=== PATIENT | male | born 1965 | race Caucasian/White ===

== ENCOUNTER → 2019-06-11 07:54 | Outpatient (CLI) | payer BC, SELFPAY ==
[2019-06-11 11:32] LABS: Alanine Aminotransferase 29 U/L (12-78); Albumin Level 4.1 gm/dL (3.4-5.0); Albumin/Globulin Ratio 1.4 (1.1-1.8); Alkaline Phosphatase 65 U/L (46-116); Anion Gap 12.5 mEq/L (5-15); Aspartate Amino Transferase 20 U/L (15-37); Bilirubin,Total 0.4 mg/dL (0.2-1.0); Blood Urea Nitrogen 16 mg/dL (7-18); Calcium 8.9 mg/dL (8.5-10.1); Carbon Dioxide 29 mmol/L (21.0-32.0); Chloride 104 mmol/L (98-107); Chol/HDL Ratio 5.2 (1-3.5); Cholesterol 232 mg/dL (140-200); Creatinine,Serum 1.23 mg/dL (0.70-1.30); Estimated Glomerular Filt Rate 61 ml/min (>60); GFR (African American) 74 ML/MIN (>60); Glucose 91 mg/dL (74-106); HDL Cholesterol 45 mg/dL (27-67); LDL Cholesterol 159 mg/dL (0-130); Potassium 4.5 mmoL/L (3.5-5.1); Sodium 141 mmol/L (136-145); Thyroid Stimulating Hormone 3.33 uIU/ml (0.358-3.740); Total Protein,Serum 7.1 gm/dL (6.4-8.2); Triglycerides 142 mg/dL (30-200); VLDL Cholesterol 28 mg/dL (0-40)
== END ==
PROVIDERS: Visit Provider Family Medicine
DX: E78.5 Hyperlipidemia, unspecified (principal); F41.9 Anxiety disorder, unspecified
CPT/HCPCS: 36415; 80053; 80061; 84443

== ENCOUNTER → 2020-07-21 12:40 | Outpatient (CLI) | payer OTHER, SELFPAY ==
--- NOTE | 2020-07-21 | XR_ITS ---
PROCEDURE: XR CHEST 2V CLINICAL HISTORY: SOA Chest pain, shortness of air COMPARISON: CR CXR CHEST(2 VIEWS-NOT PORTABLE) from 05/27/2014 FINDINGS: The cardiomediastinal silhouette and pulmonary vascularity are within normal limits. The lungs are clear without infiltrates, suspicious nodules, or pleural effusions. There is a moderate-sized hiatal hernia. No acute bony findings. IMPRESSION: Hiatal hernia otherwise negative Dictated by: Thee Martins MD 07/22/2020 07:33 Thee Martins MD in [place] 07/22/2020 07:33
== END ==
PROVIDERS: PCP Family Medicine; Referring Provider Family Medicine; Visit Provider Family Medicine
DX: R06.02 Shortness of breath (principal)
CPT/HCPCS: 71046

== ENCOUNTER → 2020-08-21 17:17 | Outpatient (CLI) | payer OTHER, SELFPAY ==
[2020-08-21 17:45] LABS: Basophils # 0.1 K/mm3 (0-0.2); Basophils % 0.8 % (0.1-2.0); Eosinophils # 0.5 K/mm3 (0.0-0.4); Hematocrit 31.2 % (42.0-52.0); Hemoglobin 9.4 g/dL (14.1-18.0); Lymphocytes % 22.7 % (10-50); Mean Corpuscular Hemoglobin 20.4 pg (27.0-31.2); Mean Platelet Volume 8.6 fl (7.4-10.4); Monocytes # 0.6 K/mm3 (0.1-1.0); Monocytes % 7.2 % (1.7-9.3); Neutrophils # 5.8 K/mm3 (1.8-7.8); Neutrophils % 64.3 % (37.0-80.0); Platelet Count 288 K/mm3 (142-424); Red Blood Count 4.59 M/mm3 (4.60-6.20); Red Cell Distribution Width 16.7 % (11.5-17.5)
== END ==
PROVIDERS: Visit Provider Family Medicine
DX: Z03.818 Encounter for observation for suspected exposure to other biological agents ruled out (principal)
CPT/HCPCS: 36415; 85025; U0003

== ENCOUNTER 2021-08-07 17:08 | Emergency (ER) | payer OTHER, SELFPAY ==
[2021-08-07 17:10] VITALS: BP 133/86; PULSE 77; RESP 20; TEMP 36.8; O2SAT 98; BMI 26.4
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
[2021-08-07 18:38] VITALS: BP 133/86; PULSE 77; RESP 20; TEMP 36.8; O2SAT 98
== END 2021-08-07 18:50 | disposition home or self-care (01) ==
PROVIDERS: Emergency Provider Nurse Practitioner; PCP Family Medicine
DX: S83.92XA Sprain of unspecified site of left knee, initial encounter (principal); V59.3XXA Occupant (driver) (passenger) of pick-up truck or van injured in unspecified nontraffic accident, initial encounter; Y92.413 State road as the place of occurrence of the external cause; Y99.0 Civilian activity done for income or pay
CPT/HCPCS: 29505; 73562; 99202; G0463

== ENCOUNTER → 2021-10-12 12:45 | Outpatient (CLI) | payer OTHER, SELFPAY ==
--- NOTE | 2021-10-12 13:14 | XR_ITS ---
PROCEDURE INFORMATION: Exam: XR Lumbosacral Spine Exam date and time: 10/12/2021 1:14 PM Age: 56 years old Clinical indication: Lumbago with sciatica; Left; Additional info: Pain and lumbargo TECHNIQUE: Imaging protocol: XR of the lumbosacral spine. Views: 2 or 3 views. COMPARISON: No relevant prior studies available. FINDINGS: Bones/joints: There is a transitional sacral vertebra. L1 is taken as the 1st yhm-[id number]-nraodwm vertebra. Vertebral body heights are well preserved. There is no significant disc space narrowing. Grade 1 anterolisthesis of L5 in relation to S1, degenerative in etiology. No aggressive osseous lesions. Tiny multilevel anterior osteophytes are appreciated. Spinal canal is patent. Mild diffuse facet joint hypertrophy. Soft tissues: There is no significant soft tissue swelling. Gastrointestinal tract: Nonobstructive bowel gas pattern. Other findings: There is no evidence of acutely displaced fractures. There is no evidence of joint dislocation. IMPRESSION: Mild multilevel degenerative changes without acute skeletal pathology.
== END ==
PROVIDERS: PCP Family Medicine; Visit Provider Family Medicine
DX: M46.1 Sacroiliitis, not elsewhere classified (principal)
CPT/HCPCS: 72100

== ENCOUNTER → 2021-11-06 12:54 | Outpatient (CLI) | payer OTHER, SELFPAY ==
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
== END ==
PROVIDERS: PCP Family Medicine; Visit Provider Orthopaedic Surgery
DX: M54.9 Dorsalgia, unspecified (principal); M54.50 Low back pain, unspecified
CPT/HCPCS: 72148; 76376

== ENCOUNTER 2021-11-26 14:40 | Emergency (ER) | payer OTHER, SELFPAY ==
[2021-11-26 14:53] VITALS: BP 146/91; PULSE 76; RESP 17; TEMP 36.7; O2SAT 96; BMI 27.7
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
[2021-11-26 15:45] VITALS: BP 141/97; PULSE 71; RESP 17; TEMP 36.7; O2SAT 97
== END 2021-11-26 15:46 | disposition home or self-care (01) ==
PROVIDERS: Emergency Provider Emergency Medicine; PCP Family Medicine
DX: S01.111A Laceration without foreign body of right eyelid and periocular area, initial encounter (principal); W31.89XA Contact with other specified machinery, initial encounter; Y92.69 Other specified industrial and construction area as the place of occurrence of the external cause; Y99.0 Civilian activity done for income or pay
CPT/HCPCS: 12011; 99282

== ENCOUNTER 2021-12-05 16:17 | Emergency (ER) | payer OTHER, SELFPAY ==
[2021-12-05 17:28] VITALS: BP 145/93; PULSE 88; RESP 16; TEMP 37.1; O2SAT 97
[2021-12-05 17:29] VITALS: BP 145/93; PULSE 88; RESP 16; TEMP 37.1
== END 2021-12-05 17:30 | disposition home or self-care (01) ==
PROVIDERS: Emergency Provider Nurse Practitioner Family; PCP Family Medicine
DX: Z48.02 Encounter for removal of sutures (principal); Z79.51 Long term (current) use of inhaled steroids; Z79.899 Other long term (current) drug therapy

== ENCOUNTER → 2022-04-15 06:55 | Outpatient (CLI) | payer OTHER, SELFPAY ==
[2022-04-14 18:07] LABS: Basophils # 0.1 K/mm3 (0-0.2); Basophils % 0.9 % (0.1-2.0); Eosinophils # 0.3 K/mm3 (0.0-0.4); Eosinophils % 4.8 % (0.1-12.0); Hematocrit 43.8 % (42.0-52.0); Hemoglobin 14.5 g/dL (14.1-18.0); Lymphocytes # 1.3 K/mm3 (0.7-4.5); Lymphocytes % 24.3 % (10-50); Mean Corpuscular HGB Conc 33.2 g/dL (31.8-35.4); Mean Corpuscular Hemoglobin 31.4 pg (27.0-31.2); Mean Corpuscular Volume 94.7 fl (80-94); Mean Platelet Volume 8.5 fl (7.4-10.4); Monocytes # 0.4 K/mm3 (0.1-1.0); Monocytes % 6.4 % (1.7-9.3); Neutrophils # 3.5 K/mm3 (1.8-7.8); Neutrophils % 63.7 % (37.0-80.0); Platelet Count 208 K/mm3 (142-424); Red Blood Count 4.63 M/mm3 (4.60-6.20); Red Cell Distribution Width 12.1 % (11.5-17.5); White Blood Count 5.4 K/mm3 (4.8-10.8)
[2022-04-14 18:22] LABS: Alanine Aminotransferase 41 U/L (12-78); Albumin Level 3.8 g/dl (3.5-5.0); Albumin/Globulin Ratio 1.6 (1.1-1.8); Alkaline Phosphatase 69 U/L (38-126); Anion Gap 9.2 mEq/L (5-15); Aspartate Amino Transferase 36 U/L (17-59); Bilirubin,Total 0.6 mg/dl (0.2-1.3); Blood Urea Nitrogen 16 mg/dl (9-20); Calcium 8.8 mg/dl (8.4-10.2); Carbon Dioxide 28 mmol/L (22.0-30.0); Chloride 105 mmol/L (98-107); Chol/HDL Ratio 2.9 (1-3.5); Cholesterol 135 mg/dl (140-200); Estimated Glomerular Filt Rate 86 ml/min (>60); GFR (African American) 105 ML/MIN (>60); Globulin 2.4 g/dL (1.3-3.2); Glucose 105 mg/dl (74-100); HDL Cholesterol 46 mg/dl (40-60); Potassium 4.2 mmoL/L (3.5-5.1); Sodium 138 mmol/L (136-145); Total Protein,Serum 6.2 g/dl (6.3-8.2); Triglycerides 62 mg/dl (30-150); VLDL Cholesterol 12 mg/dL (0-40)
[2022-04-14 18:32] LABS: Direct LDL Cholesterol 78.92 mg/dL (100-129)
[2022-04-14 20:51] LABS: Iron 132 ug/dL (49-181)
== END ==
PROVIDERS: PCP Family Medicine; Visit Provider Family Medicine
DX: E61.1 Iron deficiency (principal)
CPT/HCPCS: 80053; 80061; 83540; 85025

== ENCOUNTER → 2022-05-23 07:08 | Outpatient (CLI) | payer OTHER, SELFPAY ==
--- NOTE | 2022-05-23 | CA_ITS ---
APPROVED REPORT Exam: Exercise Treadmill Technologist: Ling Grande, Ht: 6 ft 1 in Wt: 204 lbs BSA: 2.17 m2 HR: 62 bpm BP: 121/78 mmHg Medical History Medications: Trazadone,,,,, Pristiq,,,,, Iron,,,,, Nexium,,,,, TAMSULOSIN,,,,, Albuterol,,,,, Singulair,,,,, Levocetirizine,,,,, Voltaren,,,,, Metaxalone,,,,, Pregabalin,,,,, RoSUVASTATIN,,,,, Stress Test Details Test: Sarbjit HR Resting HR: 69 bpm Max Heart Rate (APMHR): 161 bpm Max HR Achieved: 148 bpm Target HR (85% APMHR): 137 bpm % of APMHR: 92 Recovery HR: 85 bpm BP Resting BP: 128/89 mmHg Max BP: 192/84 mmHg Recovery BP: 148.0/79.0 mmHg ECG Resting ECG: SR Clinical Exercise duration: 08:38 min Highest Stage Achieved: III Exercise capacity: 10.1 METs Stress ECG Conclusion Max HR: 148 Symptoms: SOA w/exertion. No chest pain. Arrhythmias/Ectopy: PVCs, PACs Test Summary REST . . . . . . . Sitting REST . . . . . . . Standing REST 10:44 0.0 0.0 69 . 128/ 89 . . Stage 1 01:00 10.0 1.7 96 . . . . Stage 1 02:00 10.0 1.7 101 . . . . Stage 1 03:00 10.0 1.7 102 . 158/ 88 . . Stage 2 01:00 12.0 2.5 110 . . . . Stage 2 02:00 12.0 2.5 118 . . . . Stage 2 03:00 12.0 2.5 123 . 162/ 88 . . Stage 3 01:00 14.0 3.4 132 . . . . Stage 3 02:00 14.0 3.4 140 . . . . Stage 3 02:38 14.0 3.4 146 . . . Stop exercise at 08:38 RECOVERY 01:00 0.0 0.0 126 . 190/102 . . RECOVERY 02:00 0.0 0.0 106 . 190/102 . . RECOVERY 03:00 0.0 0.0 69 . 192/ 84 . . RECOVERY 04:00 0.0 0.0 76 . 192/ 84 . . RECOVERY 05:00 0.0 0.0 78 . 168/ 82 . . RECOVERY 06:00 0.0 0.0 79 . 168/ 82 . . RECOVERY 06:21 0.0 0.0 76 . 148/ 79 . . Electronically signed by : Brenden Flood MD 05/23/2022 11:59:34
--- NOTE | 2022-05-23 07:20 | NM_ITS ---
APPROVED REPORT Exam: Nuclear Stress Test Indication: HYPERLIPIDEMIA, FM HX, SOB, FATIGUE Patient Location: Outpatient Stress Tech: Ling Turk DE Tech:IRMA Kirk RT (R)(N)(M) Ht: 6 ft 1 in Wt: 204 lbs HR: 62 bpm BP: 121/78 mmHg BSA: 2.17 m2 TID: 1.17 BMI: 26.9 History: HYPERLIPIDEMIA, FM HX, SOB, FATIGUE Procedure: Patient exercised on Sarbjit protocol 8:38 minutes and sec, resting heart rate 62 bpm, resting blood pressure 121/78 mmHg, with exercise maximum heart rate achived was 148 bpm which is 92 % of the maximum predicted heart rate and blood pressure was 190/84 mmHg. Test was stopped due to SOB. Patient denied any complaint of chest pain. Patient has GERD exercise capacity, achieved 10.1 METs of workload on treadmill, the blood pressure response to exercise was Adequate. Electrocardiogram Resting electrocardiogram showed sinus rhythm, with exercise there is less than 1.[address] segment depression noted from the baseline EKG. The EKG portion of the exercise Myoview is negative for ischemia. Cardiac Stress and Resting SPECT Images: Cardiac Stress and Resting SPECT images were obtained using technetium 99m Myoview 29.3 mCi stress and 10.58 mCi at rest. Gated SPECT analysis of segmental wall motion and calculation of the ejection fraction also done. Cardiac stress and rest SPECT images show uniform myocardial activity without segmental perfusion abnormality, computer derived ejection fraction is 44% which appears to be inaccurate, visually estimated ejection fraction is 55% with no regional wall motion abnormality, right ventricle is normal size and contractility. Conclusion: 1. The EKG portion of the exercise Myoview is negative for ischemia, patient has good exercise capacity achieved 10.1 METs of workload on treadmill, the blood pressure response to exercise was adequate, there was no exercise-induced chest discomfort. 2. No scintigraphic evidence of reversible ischemia seen, computer derived ejection fraction is 44% which appears to be inaccurate, visually estimated ejection fraction 55% with no regional wall motion abnormality, right ventricle is normal size and contractility. 3. Normal exercise Myoview study. Electronically signed by : Brenden Flood MD 05/23/2022 12:02:58
== END ==
PROVIDERS: PCP Family Medicine; Visit Provider Family Medicine
DX: R07.89 Other chest pain (principal); I20.8 Other forms of angina pectoris
CPT/HCPCS: 78452; 93017; A9502

== ENCOUNTER 2022-08-31 16:22 | Emergency (ER) | payer OTHER, SELFPAY ==
[2022-08-31 18:05] VITALS: BP 143/88; PULSE 79; RESP 18; TEMP 37.1; O2SAT 97; BMI 26.4
--- NOTE | 2022-08-31 18:18 | XR_ITS ---
PROCEDURE INFORMATION: Exam: XR Chest Exam date and time: 08/31/2022 6:15 PM Age: 57 years old Clinical indication: Cough TECHNIQUE: Imaging protocol: Radiologic exam of the chest. Views: 2 views. COMPARISON: CR XR CHEST 2V 07/21/2020 12:59 PM FINDINGS: Lungs: No acute airspace consolidation. No appreciable pulmonary edema. Pleural spaces: No pleural effusion. No pneumothorax. Heart/Mediastinum: Large hiatal hernia, not significantly changed from 07/21/2020 chest radiograph. Bones/joints: No evidence of acute osseous abnormality. IMPRESSION: 1. No acute findings. 2. Large hiatal hernia, not significantly changed from 07/21/2020 chest radiograph.
[2022-08-31 18:26] LABS: UTC Influenza A Antigen Negative (Negative); UTC Influenza B Antigen Negative (Negative)
--- NOTE | 2022-08-31 18:40 | EXP.UTC ---
Discharge Plan Disposition Patient Disposition: Home, Self-Care Condition: Good Prescriptions Prescriptions: New doxycycline hyclate 100 mg capsule 100 mg PO BID Qty: 14 0RF No Action esomeprazole magnesium [Nexium] 40 mg capsule,delayed release(DR/EC) 40 mg PO DAILY montelukast [Singulair] 10 mg tablet 10 mg PO QPM rosuvastatin 20 mg tablet 20 mg PO DAILY azelastine 137 mcg (0.1 %) aerosol,spray INTRANASAL fexofenadine 180 mg tablet 180 mg PO metaxalone 800 mg tablet 800 mg PO TID desvenlafaxine succinate 50 mg tablet extended release 24 hr 50 mg PO albuterol sulfate 90 mcg/actuation HFA aerosol inhaler INHALATION tamsulosin 0.4 mg capsule PO levocetirizine 5 mg tablet 5 mg PO ferrous sulfate 325 mg (65 mg iron) tablet 325 mg PO ipratropium bromide 42 mcg (0.06 %) spray,non-aerosol INTRANASAL diclofenac sodium 75 mg tablet,delayed release (DR/EC) 75 mg PO metaxalone 800 mg tablet 800 mg PO TID trazodone 50 mg tablet 50 mg PO HS Qty: 90 2RF dextroamphetamine-amphetamine 20 mg capsule,extended release 24hr 20 mg PO DAILY Qty: 30 0RF pregabalin 100 mg capsule 100 mg PO BID Qty: 60 0RF Referrals Follow up/Referrals: Mitul Coe MD [Primary Care Provider] - See instructions Activity Restrictions/Add. Instructions Additional Instructions/Restrictions: *Monitor Temp, Over the counter Motrin or Tylenol as directed/as needed Tylenol every 4 hours and Motrin every 6 hours (as long as your family doctor has told you that you can take it) for fever or pain. and straight to ER if unable to lower temp less than 101.0 after medication given *Warm salt water gargles may help to soothe the throat *Throat Lozenges? *Warm fluids like tea with honey may help to soothe the throat? *Sleep elevated *Humidifier/Vaporizer Take medication as prescribed Follow up IMMEDIATELY for new or worsening symptoms or no Noticeable improvement over the next 48-72 hours. 911 for difficulty breathing or swallowing If you need something else for cough make sure to follow up with your Family Doctor Clinical Impressions Clinical Impression: Sinusitis, Bronchitis Instructions Patient Instructions: DI for Sinusitis, Sinusitis, Acute Bronchitis Discharge ED Provider: Ketty Sorto [facility] General Stated complaint: check up/ coughing increased Mode of Arrival: Ambulatory Source of Information: Patient Limitations: No Limitations Time Seen by Provider: 08/31/22 18:40 Description of Symptoms (Recalled from Triage Doc. by RN): PATIENT C/O COUGH X 1 WEEK. HE JUST FINISHED STEROIDS FROM HIS PCP BUT STATES IT IS NOT BETTER. ALSO C/O LOWER BACK PAIN HEENT Symptoms (Recalled from RN notes): No Resp Symptoms (Recalled from RN notes): Yes Skin Symptoms (Recalled from RN notes): No MS Symptoms (Recalled from RN notes): Yes Functional Status (Recalled from RN notes): WNL History of Present Illness Provider Complaint: Patient states that he has had a cough for over a week States that he did telehealth with PCP and got some steriods State that it hasnt helped much States that he has back problems and his coughing so much has got his back hurting States that he has been having a little sinus congestion and feels like his throat hollis when he coughs State that he sees allergy and gets injections for his allergies but today the cough was aggrivating him so he came in to get it checked out Related Data Home Medications Medication Instructions Recorded Confirmed esomeprazole magnesium 40 mg 40 mg PO DAILY 08/21/18 04/14/22 capsule,delayed release (Nexium) montelukast 10 mg tablet 10 mg PO QPM 08/21/18 04/14/22 (Singulair) rosuvastatin 20 mg tablet 20 mg PO DAILY 08/21/18 04/14/22 albuterol sulfate 90 mcg/actuation g inhalation 10/31/21 04/14/22 aerosol inhaler azelastine 137
[2022-08-31 19:24] VITALS: BP 143/88; PULSE 79; RESP 18; TEMP 37.1; O2SAT 97
== END 2022-08-31 19:49 | disposition home or self-care (01) ==
PROVIDERS: Emergency Provider Nurse Practitioner; PCP Family Medicine
DX: M54.50 Low back pain, unspecified (principal); R05.9 Cough, unspecified; R09.89 Other specified symptoms and signs involving the circulatory and respiratory systems; E78.5 Hyperlipidemia, unspecified; K44.9 Diaphragmatic hernia without obstruction or gangrene; G43.909 Migraine, unspecified, not intractable, without status migrainosus; J45.909 Unspecified asthma, uncomplicated; F41.9 Anxiety disorder, unspecified; Z79.52 Long term (current) use of systemic steroids; Z79.899 Other long term (current) drug therapy
CPT/HCPCS: 71046; 87804; 99213; G0463

== ENCOUNTER → 2022-11-03 16:36 | Outpatient (CLI) | payer OTHER, SELFPAY | PROVIDERS: PCP Family Medicine; Visit Provider Family Medicine | DX: D50.9 Iron deficiency anemia, unspecified (principal); E78.5 Hyperlipidemia, unspecified; Z12.5 Encounter for screening for malignant neoplasm of prostate ==

== ENCOUNTER → 2022-11-15 09:22 | Outpatient (CLI) | payer OTHER, SELFPAY ==
[2022-11-15 09:57] LABS: Basophils # 0.1 K/mm3 (0-0.2); Eosinophils # 0.2 K/mm3 (0.0-0.4); Eosinophils % 3.1 % (0.1-12.0); Hematocrit 45.8 % (42.0-52.0); Lymphocytes # 1.5 K/mm3 (0.7-4.5); Mean Corpuscular HGB Conc 32.7 g/dL (31.8-35.4); Mean Corpuscular Hemoglobin 31.3 pg (27.0-31.2); Mean Corpuscular Volume 95.6 fl (80-94); Mean Platelet Volume 8.4 fl (7.4-10.4); Monocytes # 0.4 K/mm3 (0.1-1.0); Monocytes % 6.2 % (1.7-9.3); Neutrophils # 3.8 K/mm3 (1.8-7.8); Neutrophils % 64.7 % (37.0-80.0); Platelet Count 218 K/mm3 (142-424); Red Blood Count 4.79 M/mm3 (4.60-6.20); Red Cell Distribution Width 12.8 % (11.5-17.5); White Blood Count 5.8 K/mm3 (4.8-10.8)
[2022-11-15 10:15] LABS: Iron 76 ug/dL (49-181)
[2022-11-15 10:24] LABS: Alanine Aminotransferase 27 U/L (12-78); Albumin Level 4.2 g/dl (3.5-5.0); Albumin/Globulin Ratio 1.8 (1.1-1.8); Alkaline Phosphatase 67 U/L (38-126); Anion Gap 7.3 mEq/L (5-15); Aspartate Amino Transferase 32 U/L (17-59); Bilirubin,Total 0.7 mg/dl (0.2-1.3); Blood Urea Nitrogen 15 mg/dl (9-20); Calcium 8.7 mg/dl (8.4-10.2); Carbon Dioxide 30 mmol/L (22.0-30.0); Chloride 107 mmol/L (98-107); Chol/HDL Ratio 2.1 (1-3.5); Cholesterol 131 mg/dl (140-200); Estimated Glomerular Filt Rate 86 ml/min (>60); GFR (African American) 105 ML/MIN (>60); Globulin 2.3 g/dL (1.3-3.2); Glucose 106 mg/dl (74-100); HDL Cholesterol 61 mg/dl (40-60); Potassium 4.3 mmoL/L (3.5-5.1); Sodium 140 mmol/L (136-145); Total Protein,Serum 6.5 g/dl (6.3-8.2); Triglycerides 61 mg/dl (30-150); VLDL Cholesterol 12 mg/dL (0-40)
[2022-11-15 10:36] LABS: Direct LDL Cholesterol 64.08 mg/dL (100-129)
[2022-11-15 10:58] LABS: Prostate Specific Ag Screen 0.9 ng/ml (0.0-4.0)
== END ==
PROVIDERS: PCP Family Medicine; Visit Provider Family Medicine
DX: D50.9 Iron deficiency anemia, unspecified (principal); E78.5 Hyperlipidemia, unspecified; Z12.5 Encounter for screening for malignant neoplasm of prostate
CPT/HCPCS: 36415; 80053; 80061; 83540; 85025; G0103

== ENCOUNTER 2023-06-05 08:02 | Day surgery (SDC) | payer OTHER, SELFPAY ==
[2023-06-03 13:26] VITALS: BMI 26.5
[2023-06-05 08:22] VITALS: BP 132/72; PULSE 58; RESP 18; TEMP 36.1; O2SAT 97
--- NOTE | 2023-06-05 08:34 | EXP.ANES.CKL ---
[facility] Disclaimer: The information contained in this section may have been updated after the patient was seen, as this information can be updated by other users. Medical History Anxiety Asthma Depression History of anemia Hyperlipidemia Migraine Tinea Surgical History History of rotator cuff surgery Family History Other Prostate cancer Social History Smoking Status: Never smoker alcohol intake: current substance use type: denies use current occupational status: employed Travel in the last 8 weeks: None household members: significant other housing: house [facility] Anesthesia Checklist Patient Identification Patient Identification: Arm Band and Verbal (Name & ) Structural Data Admitted From: Home Planned Operative Procedure/s: Colonoscopy Consent for Planned Operative Procedure(s) Verified: Yes NPO Status Verified Time NPO: 00:00 Additional verifications Anesthesia Reactions: No Airway Assessment Mallampati Score:: Class II C-Spine Mobility Assessed: Yes TMJ Mobility Assessed: Yes Dentition: Good Dentition Neurological Assessment Level of Consciousness: Awake Hx Seizures: No Numbness or tingling in extremities: No Anesthesia Plan Anesthesia Risk discussed: Yes Anesthesia Plan: Verified ASA Class: II Anesthesia Type: MAC
[2023-06-05 08:40] VITALS: O2SAT 97
--- NOTE | 2023-06-05 09:12 | HMH.SCOPE ---
Procedure: Date: 06/05/23 Patient Date of :: 1965 Procedure Performed:: Total colonoscopy to terminal ileum Indications:: Patient is a 58-year-old male whom I had done initial screening colonoscopy on about 10 years ago. He was scheduled for screening colonoscopy. Asymptomatic. His father did have prostate cancer. Performing Provider:: Santana Donis MD Referring Provider:: London Coe MD Sedation:: MAC sedation Procedure:: Patient history was obtained and appropriate physical examination was performed. Patient's medications and allergies were reviewed. Informed consent was obtained after explaining the benefits, alternatives, and risks of the procedure including, but not limited to, bleeding, perforation, missed lesions, and adverse reaction to anesthesia medications. Patient was transported to endoscopy procedure room. Patient was connected to monitoring devices. Throughout the procedure the patient's blood pressure, pulse, and oxygen saturations were monitored continuously. Patient identification and planned procedure were verified by the staff. Patient was positioned in lateral decubitus position. Digital anorectal exam was performed. Variable stiffness Olympus colonoscope was inserted and advanced under direct visualization to the cecum. Adequacy of the colonic preparation was noted. The colonoscope was advanced a short distance into the terminal ileum. The colonoscope was then slowly withdrawn while carefully examining the color, texture, anatomy, and integrity of the mucosoa circumferentially. Within the rectum retroflexion was performed. Colonoscope was then withdrawn. . Colonic prep mostly of the right colon was somewhat suboptimal with particulate stool and some undigested food matter. Thorough irrigation and suctioning was performed which allowed for decent visualization. There were some beginnings of sigmoid diverticuli but otherwise unremarkable. . Findings:: Suboptimal prep Beginnings of sigmoid diverticuli Recommendations:: Given somewhat suboptimal preparation recommend repeat colonoscopy 5 to 7 years Complications:: None immediately apparent Estimated blood obtained (mL): 0 Colonoscopy Component Colonoscopy Component Was a colonoscopy performed during today's procedure?: Yes Recommended follow up colonoscopy of at least 10 years?: No If no, follow up colonoscopy recommended in ___ years?: 5-7 Reason for not recommending >/= 10 yr follow-up interval?: Prep
[2023-06-05 09:13] VITALS: BP 108/68; PULSE 76; RESP 15; TEMP 36.4; O2SAT 95
[2023-06-05 09:23] VITALS: BP 117/64; PULSE 63; RESP 17; O2SAT 95
[2023-06-05 09:33] VITALS: BP 134/83; PULSE 53; RESP 16; O2SAT 96
[2023-06-05 09:46] VITALS: BP 143/86; PULSE 55; RESP 16; TEMP 36.7; O2SAT 99
== END 2023-06-05 09:46 | disposition home or self-care (01) ==
PROVIDERS: PCP Family Medicine; Visit Provider Surgery
PROC: 0DJD8ZZ Inspection of Lower Intestinal Tract, Via Natural or Artificial Opening Endoscopic (ICD-10-PCS; CPT 45378; principal; 2023-06-05 09:00)
DX: Z12.11 Encounter for screening for malignant neoplasm of colon (principal); Z80.0 Family history of malignant neoplasm of digestive organs; K57.30 Diverticulosis of large intestine without perforation or abscess without bleeding
CPT/HCPCS: 45378; J2704

== ENCOUNTER → 2023-08-01 09:34 | Outpatient (CLI) | payer OTHER, SELFPAY ==
[2023-08-01 10:40] LABS: Alanine Aminotransferase 33 U/L (12-78); Albumin Level 4.4 g/dl (3.5-5.0); Albumin/Globulin Ratio 1.8 (1.1-1.8); Alkaline Phosphatase 60 U/L (38-126); Anion Gap 12.3 mEq/L (5-15); Aspartate Amino Transferase 31 U/L (17-59); Bilirubin,Total 1.4 mg/dl (0.2-1.3); Blood Urea Nitrogen 17 mg/dl (9-20); Calcium 9.4 mg/dl (8.4-10.2); Carbon Dioxide 27 mmol/L (22.0-30.0); Chloride 104 mmol/L (98-107); Chol/HDL Ratio 2.7 (1-3.5); Cholesterol 160 mg/dl (140-200); Estimated Glomerular Filt Rate 68 ml/min (>60); GFR (African American) 83 ML/MIN (>60); Globulin 2.5 g/dL (1.3-3.2); Glucose 109 mg/dl (74-100); HDL Cholesterol 59 mg/dl (40-60); Potassium 4.3 mmoL/L (3.5-5.1); Sodium 139 mmol/L (136-145); Total Protein,Serum 6.9 g/dl (6.3-8.2); Triglycerides 70 mg/dl (30-150); VLDL Cholesterol 14 mg/dL (0-40)
[2023-08-01 10:52] LABS: Direct LDL Cholesterol 86.92 mg/dL (100-129)
== END ==
PROVIDERS: PCP Family Medicine; Visit Provider Family Medicine
DX: E78.5 Hyperlipidemia, unspecified (principal)
CPT/HCPCS: 36415; 80053; 80061

== ENCOUNTER 2024-03-01 13:34 | Outpatient (CLI) | payer OTHER, SELFPAY ==
--- NOTE | 2024-03-01 13:35 | CT_ITS ---
FINAL REPORT CLINICAL HISTORY: post-nasal drainage COMPARISON: None FINDINGS: The paranasal sinuses are well aerated. There is no fracture. There are no air-fluid levels. The ostiomeatal units are patent. IMPRESSION: Unremarkable. Reviewed, Interpreted and Dictated by Maury Hdz MD Transcribed by Tran Elder Authenticated and [facility]
== END 2024-03-01 23:59 | disposition home or self-care (01) ==
LOC: RAD 13:35
PROVIDERS: PCP Nurse Practitioner; Visit Provider Nurse Practitioner
DX: J32.8 Other chronic sinusitis (principal)
CPT/HCPCS: 70486

== ENCOUNTER 2024-03-16 15:24 | Emergency (ER) | payer OTHER, SELFPAY ==
[2024-03-16 15:45] VITALS: BP 143/91; PULSE 63; RESP 20; TEMP 36.8; O2SAT 98; BMI 25.7
--- NOTE | 2024-03-16 16:04 | XR_ITS ---
PROCEDURE INFORMATION: Exam: XR Left Shoulder Exam date and time: 03/16/2024 3:56 PM Age: 59 years old Clinical indication: Pain; Shoulder; Left; Additional info: Workers comp. Shoulder pain TECHNIQUE: Imaging protocol: Radiologic exam of the left shoulder. Views: 2 or more views. COMPARISON: CR XR CHEST 2V 08/31/2022 6:15 PM FINDINGS: Bones/joints: The osseous structures appear intact with no evidence of acute fracture, dislocation, or malalignment. Joint spaces are preserved. No abnormal bone density or destructive lesions are noted. Soft tissues: Soft tissues appear unremarkable. IMPRESSION: At the time of imaging, there is no evidence for acute osseous abnormalities.
--- NOTE | 2024-03-16 16:04 | XR_ITS ---
FINAL REPORT CLINICAL HISTORY: workers comp. shoulder and arm pain FINDINGS: Left humerus Four views were obtained. There is no acute fracture or dislocation. The joint spaces appear normal. No soft tissue abnormality is identified. IMPRESSION: No acute process. Reviewed, Interpreted and Dictated by Santana Fonseca III, MD Transcribed by Zoila Dickens Authenticated and [facility]
--- NOTE | 2024-03-16 16:10 | EXP.UTC ---
Discharge Plan Disposition Patient Disposition: Home, Self-Care Condition: Good Prescriptions Prescriptions: No Action dextroamphetamine-amphetamine 20 mg capsule,extended release 24hr 1 cap PO DAILY Patient Comments: TAKE 1 CAPSULE BY MOUTH EVERY DAY IN THE MORNING FOR 30 DAYS diclofenac sodium 75 mg tablet,delayed release (DR/EC) 75 mg PO BID Patient Comments: TAKE 1 TABLET BY MOUTH TWICE A DAY FOR 90 DAYS montelukast 10 mg tablet 10 mg PO DAILY Patient Comments: TAKE 1 TABLET BY MOUTH EVERY DAY FOR 90DAYS ipratropium bromide 42 mcg (0.06 %) spray,non-aerosol 2 spray INTRANASAL BIDP PRN (Reason: .) Patient Comments: INSTILL 2 SPRAYS INTO BOTH NOSTRILS TWICE A DAY NEEDED metaxalone 800 mg tablet 800 mg PO BID Patient Comments: TAKE 1 TABLET BY MOUTH TWICE A DAY NEEDED pregabalin 100 mg capsule 100 mg PO BID Patient Comments: TAKE 1 CAPSULE BY MOUTH TWICE A DAY FOR 30 DAYS budesonide-formoterol 160-4.5 mcg/actuation HFA aerosol inhaler 2 puff INHALATION BID Patient Comments: INHALE 2 PUFFS BY MOUTH TWICE DAILY. RINSE MOUTH AFTER USE levocetirizine 5 mg tablet 5 mg PO ONCE Patient Comments: TAKE 1 TABLET BY MOUTH EVERY DAY desvenlafaxine succinate 50 mg tablet extended release 24 hr 50 mg PO DAILY Patient Comments: TAKE 1 TABLET BY MOUTH EVERY DAY Xhance 93 mcg/actuation aerosol breath activated 1 spray INTRANASAL BID Patient Comments: USE 1 SPRAY IN EACH NOSTRIL TWICE DAILY DIRECTED Referrals Follow up/Referrals: Yousif Maddox DO [Staff Physician] - See instructions Mitul Coe MD [Primary Care Provider] - See instructions Activity Restrictions/Add. Instructions Additional Instructions/Restrictions: Follow up with ortho. Clinical Impressions Clinical Impression: Biceps tendon tear Left shoulder pain Qualifiers: Chronicity: acute Qualified Code(s): M25.512 - Pain in left shoulder Stand Alone Forms Stand Alone Forms: Work/School Release Instructions Patient Instructions: DI for Shoulder Pain Discharge ED Provider: Valerie Gleason [facility] HPI General Stated complaint: WC 03/16@1330 fall LT shoulder inj Mode of Arrival: Ambulatory Source of Information: Patient Limitations: No Limitations Time Seen by Provider: 03/16/24 16:09 Description of Symptoms (Recalled from Triage Doc. 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 Related Data Home Medications Medication Instructions Recorded Confirmed budesonide-formoterol HFA 160 2 puff inhalation BID 03/16/24 03/16/24 mcg-4.5 mcg/actuation aerosol inhaler desvenlafaxine succinate 50 mg 50 mg PO DAILY 03/16/24 03/16/24 tablet,extended release 24 hr dextroamphetamine-amphetamine ER 1 cap PO DAILY 03/16/24 03/16/24 20 mg 24hr capsule,extend release diclofenac sodium 75 mg 75 mg PO BID 03/16/24 03/16/24 tablet,delayed release fluticasone propionate 93 1 spray intranasal BID 03/16/24 03/16/24 mcg/actuation breath activated aerosol (Xhance) ipratropium bromide 42 mcg (0.06 2 spray intranasal BIDP PRN . 03/16/24 03/16/24 %) nasal spray levocetirizine 5 mg tablet 5 mg PO ONCE 03/16/24 03/16/24 metaxalone 800 mg tablet 800 mg PO BID 03/16/24 03/16/24 montelukast 10 mg tablet 10 mg PO DAILY 03/16/24 03/16/24 pregabalin 100 mg capsule 100 mg PO BID 03/16/24 03/16/24 Allergies Allergy/AdvReac Type Severity Reaction Status Date / Time No Known Allergies Allergy Verified 02/04/24 16:05 Worker's Comp Is this a Worker's Comp case?: No [facility] Disclaimer: The information contained in this section may have been updated after the patient was seen, as this information can be updated by other users. Medical History (Updated 03/16/24 @ 16:32 by Valerie Gleason APRN) Allergic rhinitis Nasal dryness History of anemia Depression Anxiety Migraine Asthma Hyperlipidemia Tinea Surgical History History of rotator cuff surgery Family History Other Prostate cancer Social History Smoking Status: Never smoker alcohol intake: current alcohol intake frequency: 0-2 drinks per day substance use type: denies use current occupational status: employed Travel in the last 8 weeks: None household members: significant other housing: house ROS Obtained: Yes All systems reviewed & no additional complaints except as documented Constitutional Constitutional: Reports system reviewed and no additional complaints, except as documented Eyes Eyes: Reports system reviewed and no additional complaints, except as documented ENT Ears, Nose, Mouth, and Throat: Reports system reviewed and no additional complaints, except as documented Cardiovascular Cardiovascular: Reports system reviewed and no additional complaints, except as documented Respiratory Respiratory: Reports system reviewed and no additional complaints, except as documented Gastrointestinal Gastrointestingal: Reports system reviewed and no additional complaints, except as documented Genitourinary Male Genitourinary: Reports system reviewed and no additional complaints, except as documented Musculoskeletal Musculoskeletal: Reports system reviewed and no additional complaints, except as documented, Reports as per HPI, Reports arthralgias, Reports limited range of motion, Reports myalgias and Reports radiating pain into limb Integumentary/Breasts Skin/Breast: Reports system reviewed and no additional complaints, except as documented Neurologic Neurologic: Reports system reviewed and no additional complaints, except as documented Endocrine Endocrine: Reports system reviewed and no additional complaints, except as documented Hematologic/Lymphatic Henatologic/Lymphatic: Reports system reviewed and no additional complaints, except as documented Allergic/Immunologic Allergic/Immunologic: Reports system reviewed and no additional complaints, except as documented Physical Exam General General appearance: alert and in no apparent distress Head Head exam: atraumatic and normocephalic Eye Eye exam: Present normal appearance ENT ENT exam: Present normal exam Neck Neck exam: Present normal inspection Chest Chest inspection: Present normal inspection and symmetric chest wall rise Respiratory Respiratory exam: Present normal lung sounds bilaterally Cardiovascular Cardiovascular exam: Present regular rate, normal rhythm and normal heart sounds Abdominal Exam Abdominal exam: Present soft and normal bowel sounds Expanded Upper Extremity Exam Left: Shoulder exam: Present tenderness and tenderness over AC joint Arm exam: Present swelling (jeremy arm noted) Elbow exam: Present normal inspection Forearm/Wrist exam: Present normal inspection Hand exam: Present normal inspection Vascular exam: Normal capillary refill Back Exam Back exam: Present normal inspection Neurological Exam Neurological exam: Present alert and oriented X3 Psychiatric Psychiatric exam: Present normal affect and normal mood Skin Skin exam: Present warm, dry and intact Lymphatic Lymphatic Findings: no adenopathy Medical Decision Making Evaristo Inquiry Pt receiving controlled substance: No Evaristo was queried for this patient: No Vital Signs: 03/16/24 15:45 Temperature 98.3 F Temperature Source Oral Pulse Rate [Left Brachial] 63 Respiratory Rate 20 Blood Pressure [Left Arm] 143/91 H Blood Pressure Mean [Left Arm] 108 Blood Pressure Source [Left Arm] Automatic Cuff Blood Pressure Position [Left Arm] Sitting 02 Sat by Pulse Oximetry 98 Oxygen Delivery Method Room Air Orders (Tests/Meds): ORDERS Category Date Time Status Humerus XR left [XR humerus LT] Stat Exams 03/16/24 16:04 Ordered XR shoulder LT min 2V Stat Exams 03/16/24 16:04 Ordered Radiology Data #1: Image(s): Shoulder and Humerus Image Reviewed: Yes I reviewed the patient's radiology results and Yes I have reviewed radiologist's interpretation FINDINGS: Bones/joints: The osseous structures appear intact with no evidence of acute fracture, dislocation, or malalignment. Joint spaces are preserved. No abnormal bone density or destructive lesions are noted. Soft tissues: Soft tissues appear unremarkable. IMPRESSION: At the time of imaging, there is no evidence for acute osseous abnormalities. Humerous: FINDINGS: Left humerus Four views were obtained. There is no acute fracture or dislocation. The joint spaces appear normal. No soft tissue abnormality is identified. IMPRESSION: No acute process.
[2024-03-16 16:33] VITALS: BP 143/91; PULSE 63; RESP 20; TEMP 36.8; O2SAT 98
== END 2024-03-16 16:39 | disposition home or self-care (01) ==
PROVIDERS: Emergency Provider Nurse Practitioner Family; PCP Family Medicine
DX: S46.212A Strain of muscle, fascia and tendon of other parts of biceps, left arm, initial encounter (principal); M25.512 Pain in left shoulder; X50.0XXA Overexertion from strenuous movement or load, initial encounter
CPT/HCPCS: 73030; 73060; 99212; 99213; G0463

== ENCOUNTER 2024-05-11 08:38 | Outpatient (CLI) | payer OTHER, SELFPAY ==
--- NOTE | 2024-05-11 08:39 | FL_ITS ---
FINAL REPORT CLINICAL HISTORY: constantly clearing throat and cough fluoro time 2.47 189.12 mgy FINDINGS: UPPER GI SERIES, SINGLE CONTRAST, AND SMALL BOWEL FOLLOW THROUGH HISTORY: Constantly clearing throat, acute cough, previous surgery for GERD. TECHNIQUE: The patient ingested thick and thin barium contrast. Additional barium was administered for small bowel follow-through. Spot and overhead films were performed. A total of 49 images were saved. FINDINGS: UGI: The esophagus demonstrates no morphologic abnormalities. No mucosal defects are seen and motility appears normal. There is a large hiatal hernia. Almost the entire stomach is above the diaphragm. The duodenal bulb and sweep appear unremarkable. No episodes of gastroesophageal reflux observed. 13 mm barium tablet passes easily through the esophagus and into the stomach. SBFT: The floor refinisher film is unremarkable. Contrast reaches the colon at 15 minutes. The mucosal fold pattern is normal. Spot images of the terminal ileum are unremarkable. FLUOROSCOPY TIME: 2 minutes 47 seconds Radiation exposure in Reference air Kerma: 189.12 mGy IMPRESSION: Large hiatal hernia with almost the entire stomach above the diaphragm. Otherwise, unremarkable upper GI and small bowel follow-through. Reviewed, Interpreted and Dictated by Santana Fonseca III, MD Transcribed by Irene Nelson PA-C Authenticated and [facility]
[2024-05-11] MEDS: BARIUM SULFATE(LIQUID E-Z-PAQUE);355ML BOTTLE 355 ML PO (09:36)
[2024-05-11] MEDS: BARIUM SULFATE (E-Z-HD 340GM);135ML BOTTLE 135 ML PO (09:36)
== END 2024-05-11 23:59 | disposition home or self-care (01) ==
LOC: RAD 08:39
PROVIDERS: PCP Family Medicine; Visit Provider Surgery
DX: K44.9 Diaphragmatic hernia without obstruction or gangrene (principal); R05.9 Cough, unspecified
CPT/HCPCS: 74246; 74248

== ENCOUNTER 2024-07-11 11:44 | Day surgery (SDC) | payer OTHER, SELFPAY ==
[2024-07-04 14:25] VITALS: BMI 26.4
[2024-07-11 12:18] VITALS: BP 140/99; PULSE 56; RESP 18; TEMP 36.2; O2SAT 97
[2024-07-11] MEDS: LACTATED RINGERS 1000ML 1,000 ML 25 ML IV (12:22)
[2024-07-11 13:08] VITALS: O2SAT 97
--- NOTE | 2024-07-11 13:09 | EXP.ANES.CKL ---
[facility] Disclaimer: The information contained in this section may have been updated after the patient was seen, as this information can be updated by other users. Medical History Coughing Allergic rhinitis Nasal dryness History of anemia Depression Anxiety Migraine Asthma Hyperlipidemia Tinea Surgical History History of esophagogastroduodenoscopy (EGD) History of colonoscopy History of rotator cuff surgery Family History Other Prostate cancer Social History Smoking Status: Never smoker alcohol intake: current alcohol intake frequency: 0-2 drinks per day substance use type: denies use current occupational status: employed Travel in the last 8 weeks: None household members: significant other housing: house [facility] Anesthesia Checklist Patient Identification Patient Identification: Arm Band Structural Data Admitted From: Home Planned Operative Procedure/s: EGD Consent for Planned Operative Procedure(s) Verified: Yes Verified Documents: Surgical Consent and History and Physical NPO Status Verified Time NPO: 00:00 Additional verifications Anesthesia Reactions: No Airway Assessment Mallampati Score:: Class II C-Spine Mobility Assessed: Yes TMJ Mobility Assessed: Yes Dentition: Good Dentition Neurological Assessment Level of Consciousness: Awake, Alert and Appropriate Anesthesia Plan Anesthesia Risk discussed: Yes Anesthesia Plan: Verified ASA Class: II Anesthesia Type: MAC
--- NOTE | 2024-07-11 13:14 | EXP.HP ---
History of Present Illness *Admission Date: 07/11/24 *Reason for visit:: Frequent clearance of the throat/GERD *History of present illness: Mr. Coronado is a 59-year-old gentleman who is here for diagnostic upper endoscopy secondary to chronic GERD, frequent clearance of the throat, fullness and early satiety. The examination is deemed medically necessary for EGD. The patient has been seen, interviewed and examined prior to the procedure by both myself and the anesthesia provider. [facility] Disclaimer: The information contained in this section may have been updated after the patient was seen, as this information can be updated by other users. Medical History (Updated 07/11/24 @ 13:20 by Sabino Cabrera II, MD) Coughing Allergic rhinitis Nasal dryness History of anemia Depression Anxiety Migraine Asthma Hyperlipidemia Tinea Surgical History History of esophagogastroduodenoscopy (EGD) History of colonoscopy History of rotator cuff surgery Family History Other Prostate cancer Social History Smoking Status: Never smoker alcohol intake: current alcohol intake frequency: 0-2 drinks per day substance use type: denies use current occupational status: employed Travel in the last 8 weeks: None household members: significant other housing: house Other Medical History Have you received the Flu Vaccine for this season: Yes Have you received the Pneumonia Vaccine: Yes Review of Systems Review of Systems Review of systems (narrative): Negative *Cardiovascular Comments: Negative *Gastrointestinal Comments: Negative *Genitourinary Comments: Negative *Musculoskeletal Comments: Negative *Neurologic Comments: Negative Meds Home Medications and Allergies Home Medications ?Medication ?Instructions ?Recorded ?Confirmed ?Type budesonide-formoterol HFA 160 2 puff inhalation BID 03/16/24 07/11/24 History mcg-4.5 mcg/actuation aerosol inhaler desvenlafaxine succinate 50 mg 50 mg PO DAILY 03/16/24 07/11/24 History tablet,extended release 24 hr dextroamphetamine-amphetamine ER 1 cap PO DAILY 03/16/24 07/11/24 History 20 mg 24hr capsule,extend release diclofenac sodium 75 mg 75 mg PO BID 03/16/24 07/11/24 History tablet,delayed release fluticasone propionate 93 1 spray intranasal BID 03/16/24 07/11/24 History mcg/actuation breath activated aerosol (Xhance) ipratropium bromide 42 mcg (0.06 2 spray intranasal BIDP PRN . 03/16/24 07/11/24 History %) nasal spray levocetirizine 5 mg tablet 5 mg PO ONCE 03/16/24 07/11/24 History metaxalone 800 mg tablet 800 mg PO BID 03/16/24 07/11/24 History montelukast 10 mg tablet 10 mg PO DAILY 03/16/24 07/11/24 History pregabalin 100 mg capsule 100 mg PO BID 03/16/24 07/11/24 History esomeprazole magnesium 40 mg 40 mg PO DAILY 03/17/24 07/11/24 History capsule,delayed release famotidine 20 mg tablet 40 mg PO DAILY 03/17/24 07/11/24 History rosuvastatin 20 mg tablet 20 mg PO DAILY Cholesterol 03/17/24 07/11/24 History tamsulosin 0.4 mg capsule 0.4 mg PO DAILY 03/17/24 07/11/24 History New Prescriptions to Start Prescriptions: Allergies Allergy/AdvReac Type Severity Reaction Status Date / Time No Known Allergies Allergy Verified 07/11/24 12:14 Exam Data for Last 24 hours Vital signs and Labs for Last 24 Hours: Temp Pulse Resp BP Pulse Ox O2 Del Method 97.2 F L 56 L 18 140/99 H 97 Room Air 07/11/24 12:18 07/11/24 12:18 07/11/24 12:18 07/11/24 12:18 07/11/24 12:18 07/11/24 12:18 *Routine HEENT Exam Head: Present normocephalic Eye: Present EOMI and PERRL ENT: Present mucous membranes moist *Routine Neck Exam Neck: Present supple *Routine Respiratory Exam Respiratory: Present CTA bilaterally *Routine Cardiovascular Exam Cardiovascular: Present RRR *Routine Abdominal Exam Abdominal: Present soft and normoactive bowel sounds; Absent tenderness *Routine Rectal Exam Rectal:: deferred *Routine Genitalia Exam Genitalia:: deferred *Routine Extremities Exam Extremities: Absent cyanosis, clubbing or edema *Routine Skin Exam Skin: Present warm; Absent rash *Routine Neurological Exam Neurological: Present alert and oriented X3 Assessment and Plan *Assessment and plan (1) Chronic throat clearing: Status: Acute Category: Medical Code(s): R09.89 - Other specified symptoms and signs involving the circulatory and respiratory systems (2) GERD (gastroesophageal reflux disease): Status: Acute Category: Medical Code(s): K21.9 - Gastro-esophageal reflux disease without esophagitis (3) Hiatal hernia: Status: Acute Category: Medical Code(s): K44.9 - Diaphragmatic hernia without obstruction or gangrene Plan A/P: 1. Frequent throat clearing/GERD is the preprocedural diagnosis. The patient will be anesthetized/sedated using MAC sedation. The patient has been seen and examined. Cardiac and lung assessment prior to the examination is stable. Proceed with planned EGD
--- NOTE | 2024-07-11 13:21 | HMH.PROCNOTE ---
[facility] Procedure Note Date: 07/11/24 Time: 13:30 Procedure Note:: Upper Endoscopy Procedure Report: Esophagogastroduodenoscopy with cold biopsies Endoscopost: Sabino Cabrera II, MD Referring Physician: London Coe MD/Santana Donis MD Date of Procedure: July 11, 2024 Equipment: Olympus GIF 190 standard upper endoscope Sedation: MAC sedation Indications: Mr. Coronado is a 59-year-old gentleman who is here for diagnostic upper endoscopy secondary to frequent throat clearance. This has improved. There was mucus accumulation in the throat. He has had longstanding GERD and had seen me approximately 20 years ago with an EGD. He did have antireflux surgery by Dr. Juan Giraldo more than 20 years ago. The patient does report bloating and fullness with early satiety. He has had no dyspepsia, epigastric discomfort, dysphagia, chest pain or belching. He reports regular bowel function. The patient does state that he had been on esomeprazole. When famotidine was started, his symptoms did improve. The patient did have an upper GI with small bowel follow-through. There was a large hiatal hernia with almost the entire stomach above the diaphragm. Procedure: Prior to the procedure, a history and physical exam was performed, and patient's medications and allergies were reviewed. The risks, benefits and alternatives of the sedation and procedure were discussed with the patient. All questions were answered and informed consent was obtained. The patient was brought to the procedure room. Patient identification and proposed procedure were verified by the physician and the nurse. The patient was placed in a left lateral decubitus position and the scope was passed under direct vision. Throughout the procedure, the patient's blood pressure, pulse, and oxygen saturations were monitored continuously. The upper GI endoscopy was accomplished without difficulty. The patient tolerated the procedure well. Findings: The scope was passed directly into the upper esophagus and advanced to the third and fourth portion of the duodenum. The post bulbar duodenum and duodenal bulb were normal with normal mucosa and conniventes. The scope was withdrawn through a normal duodenal bulb and pylorus into the stomach. There was some bile reflux with mild linear reactive gastropathy of the antrum. Upon retroflexion the majority of the body and fundus was above the diaphragmatic hiatus within the thoracic cavity and this was a large hiatal/paraesophageal hernia (diaphragmatic hiatus at 42 cm from incisors and top of the gastric folds/GE junction at 33?34 cm) measuring 8 to 9 cm in size. There was a paraesophageal component. There were no Ab's erosions. Cold biopsies were taken from the antrum and body to rule out H. pylori. The scope was then withdrawn into the esophagus. There was a serrated Z-line and biopsies were taken at the GE junction. There was no obvious Gore's. There were no rings and no evidence of reflux esophagitis. There were tertiary contractions and evidence of moderate esophageal dysmotility. There was some mild esophageal mucosal glycogen acanthosis. There was no inlet patch. The remainder of the esophageal mucosa was normal. Impression: 1. Large 8 to 9 cm hiatal hernia/paraesophageal hernia (in the setting of prior fundoplication) 2. Nonerosive GERD with moderate esophageal dysmotility 3. Mild esophageal mucosal glycogen acanthosis 4. Bile reflux with mild linear reactive gastropathy of antrum Plan: The patient does have a large paraesophageal type hiatal hernia. The patient is not having any symptomatic dyspepsia or GERD. I do feel that his prior frequent clearance of the throat was functional GERD and we will discuss treatment options. I would continue the esomeprazole and famotidine that have helped. He does not have complicated GERD (Gore's or reflux esophagitis). We will discuss symptomatic treatments including Iberogast, diaphragmatic breathing, treatment of obstipation, etc. I will follow-up the biopsies.
[2024-07-11 13:33] VITALS: BP 131/80; PULSE 74; RESP 16; O2SAT 96
[2024-07-11 13:43] VITALS: BP 107/68; PULSE 56; RESP 16; O2SAT 95
[2024-07-11 13:53] VITALS: BP 128/80; PULSE 59; RESP 16; O2SAT 97
[2024-07-11 14:03] VITALS: BP 138/79; PULSE 56; RESP 16; O2SAT 97
== END 2024-07-11 14:13 | disposition home or self-care (01) ==
PROVIDERS: PCP Family Medicine; Visit Provider Internal Medicine Gastroenterology
PROC: 0DJ08ZZ Inspection of Upper Intestinal Tract, Via Natural or Artificial Opening Endoscopic (ICD-10-PCS; CPT 43239; principal; 2024-07-11 13:30)
DX: K44.9 Diaphragmatic hernia without obstruction or gangrene (principal); R09.89 Other specified symptoms and signs involving the circulatory and respiratory systems; K21.9 Gastro-esophageal reflux disease without esophagitis; R68.81 Early satiety; K22.4 Dyskinesia of esophagus; K31.9 Disease of stomach and duodenum, unspecified; K22.9 Disease of esophagus, unspecified
CPT/HCPCS: 43239; J7120

== ENCOUNTER 2024-10-11 10:38 | Outpatient (CLI) | payer OTHER, SELFPAY ==
[2024-10-13 04:36] LABS: Pancreatic Elastase, Fecal >800 (>200)
== END 2024-10-11 23:59 | disposition home or self-care (01) ==
LOC: LAB 10:39
PROVIDERS: PCP Family Medicine; Visit Provider Nurse Practitioner Family
DX: R14.0 Abdominal distension (gaseous) (principal)
CPT/HCPCS: 82656

== ENCOUNTER 2025-03-23 11:29 | Outpatient (CLI) | payer BC, SELFPAY ==
--- OUTSIDE RECORDS SUMMARY | 2025-02-28 08:00 | XMS_ITS | Encounter Summary ---
Author Organization [place] [address] Care Team Providers Care Director Of Healthcare Systems Name Role Phone Jose Ayers MD Primary Care Provider [phone] Reason for Referral * GI Procedure (Routine) - Pending Review Specialty Diagnoses / Procedures Referred By Contingrid t Referred To Contact Gastroenterology Diagnoses Special screening for malignant neoplasm of colon Jose Ayers MD [facility] [place] [address] Phone: tel: fax: [facility] [address], [address] [place] [address] Phone: tel: fax: Referral ID Status Reason Start Date Expiration Date V isits Requested Visits Authorized [id number] Pending Review 02/28/2025 02/28/2026 1 1 Reason for Visit * Reason Comments ADHD 3 month check up Encounter Details Date Type Department Care Team (Late st Contact Info) Description 02/28/2025 8:00 AM EDT Office Visit [facility] [place] [phone] Jose Ayers MD [address] [place] [phone] Chronic midline low back pain without sciatica (Primary Dx); Special screening for malignant neoplasm of colon; Adult ADHD Social History Tobacco Use Types Packs/Day Years Used Date Smoking Tobacco: Never Smokeless Tobacco: Never Tobacco Cessation:Counseling Given: Not Answered Alcohol Use Standard Drinks/Week Comments Yes 2 (1 standard drink = 0.6 oz pur e alcohol) social PHQ-2 Answer Date Recorded PHQ-2 Total Score 0 12/01/2024 Sexually Active Control Partners Comments Yes Female Sex and Gender Information Value Date Recorded Sex Assigned at Not on file Legal Sex Male 7:36 PM EDT Gender Identity Not on file Sexual Orientation Not on file documented as of this encounter Last Filed Vital Signs Vital Sign Reading Time Taken Comments Blood Pressure 132/84 02/28/2025 8:06 AM EDT Pulse 61 02/28/2025 8:06 AM EDT Temperature 36.8 C (98.2 F) 02/28/2025 8:06 AM EDT Respiratory Rate - - Oxygen Saturation 98% 02/28/2025 8:06 AM EDT Inhaled Oxygen Concentration - - Weight 92.1 kg (203 lb) 02/28/2025 8:06 AM EDT Height 182.9 cm (6') 02/28/2025 8:06 AM EDT Body Mass Index 27.53 02/28/2025 8:06 AM EDT documented in this encounter Functional Status * Cognitive and Functional Status Question Answer Date of Assessment Author Is the person deaf or does h e/she have serious difficulty hearing? No 02/28/2025 8:05 AM EDT Davon Chavez MA Is the person blind or does he/she have serious difficulty seeing even when wearing glasses? No 02/28/2025 8:05 AM EDT Davon Desai MA Does this person have seriou s difficulty walking or climbing stairs? No 02/28/2025 8:05 AM EDT Davon Desai M A Does this person have diffic ulty dressing or bathing? No 02/28/2025 8:05 AM MARIZOLT Davon Desai MA * Is the person deaf or does he/she have serious difficulty hearing? Answer Date of Assessment Author No 02/28/2025 8:05 AM EDT Kemi Desai MA * Is the person blind or does he/she have serious difficulty seeing even when wearing glasses? Answer Date of Assessment Author No 02/28/2025 8:05 AM Kemi Ritchie MA * Does this person have serious difficulty walking or climbing stairs? Answer Date of Assessment Author No 02/28/2025 8:05 AM Kemi Ritchie MA * Does this person have difficulty dressing or bathing? Answer Date of Assessment Author No 02/28/2025 8:05 AM Kemi Ritchie MA * Because of a physical, mental or emotional condition, does this person have difficulty doing errands alone such as visiting a doctor's office or shopping? Answer Date of Assessment Author No 02/28/2025 8:05 AM Kemi Ritchie MA documented as of this encounter Mental Status * Cognitive and Functional Status Question Answer Entry Date Author Because of a physical, menta l or emotional condition, does this person have difficulty doing errands alone such as visiting a doctor's office or shopping? No 02/28/2025 8:05 AM Davon Ritchie M A Because of a physical, menta l or emotional condition, does this person have serious difficulty concentrating, remembering or making decisions? No 02/28/2025 8:05 AM Davon Ritchie M A * Because of a physical, mental or emotional condition, does this person have serious difficulty concentrating, remembering or making decisions? Answer Entry Date Author No 02/28/2025 8:05 AM Kemi Ritchie MA documented in this encounter Ordered Prescriptions Prescription Sig Dispense Quantity Refills Last Filled Start Date End Date dextroamphetamine- amphetamine (ADDERALL XR) 20 mg Oral Capsule, Sust. Release 24 hrIndications:Adul t ADHD Take 1 Capsule by mouth daily for 30 days. 30 Capsule 02/28/2025 pregabalin (LYRICA) 150 mg Oral CapsuleIndications :Chronic midline low back pain without sciatica Take 1 Capsule by mouth 2 times daily. 60 Capsule 2 02/28/2025 documented in this encounter Progress Notes * Jose Ayers MD - 02/28/2025 8:00 AM EDTAssociated Problem(s): Chronic low back pain Orders: pregabalin (LYRICA) 150 mg Oral Capsule; Take 1 Capsule by mouth 2 times daily. * Jose Ayers MD - 02/28/2025 8:00 AM EDT Images from the original note were not included. Assessment & Plan 1. Dermatological concern. - The spot on his back is benign and does not pose any risk of malignancy. - It is recommended to monitor the spot annually. - If it becomes thicker or irritated, further evaluation may be necessary. - Reassured that there is a 99.9% chance it will not turn into anything harmful. 2. Pain management. - Reports that increasing the Lyrica dosage to 150 mg twice a day has significantly improved his pain. - Previously experienced significant pain with the 100 mg dosage taken three times a day. - Prescription for Lyrica 150 mg twice daily will be sent to pharmacy. - Additionally, a refill for Adderall will be provided. 3. Hiatal hernia. - Continues to experience bloating and gas despite regular bowel movements. - Advised to avoid carbonated drinks and continue his current regimen of MiraLAX and Citrucel. - Discussed the potential for the hernia to worsen over time, but no immediate changes are necessary. - Engages in regular exercise, including sit-ups, which does not exacerbate symptoms. Follow-up - Follow-up appointment scheduled in 3 months. Assessment & Plan Special screening for malignant neoplasm of colon Orders: SCREENING COLONOSCOPY Adult ADHD Goals: - continue the lowest dose of medication possible to remain attentive to complete tasks at school or work State Prescription Drug Monitoring Program (i.e SUSHILA, INSPECT, OARS): - report reviewed in the past year Urine Drug Screen: - urine drug screen completed in the last year Controlled Substance Contract: - completed and on file Prescription Drug Management: - medication management decisions took place at today's visit (see orders) Orders: dextroamphetamine-amphetamine (ADDERALL XR) 20 mg Oral Capsule, Sust. Release 24 hr; Take 1 Capsuleby mouth daily for 30 days. Chronic midline low back pain without sciatica Orders: pregabalin (LYRICA) 150 mg Oral Capsule; Take 1 Capsule by mouth 2 times daily. No follow-ups on file. Subjective LUCIANA Coronado is a 60 y.o. male Chief Complaint Patient presents with ADHD 3 month check up History of Present Illness The patient is a 60-year-old male who presents for evaluation of a spot on his back, pain management, and hiatal hernia. He has been advised by his physician to monitor a spot located in the middle of his back. His has been assisting him in this regard. He reports that the spot has not caused any significant issues and has been reassured by his physician that it is unlikely to turn into anything serious. He was previously on a regimen of Lyrica 100 mg, administered three times daily. However, due to persistent pain, the dosage was adjusted to 150 mg twice daily. This adjustment has resulted in significant improvement. He also supplements his treatment with Tylenol, taking two tablets in the morning, occasionally two at noon, and two at night. He reports that his condition was exacerbated during his period of employment but has improved since he stopped working. He continues to experience bloating and gas, which he attributes to a stomach issue, specifically ahiatal hernia. He has been managing this with MiraLAX and Citrucel every morning, which has improved his bowel movements. Despite this, he still experiences gas. He has been engaging in regular exercise, including sit- ups three to four times a week, and has lost three pounds since his last visit. He has abstained from drinking soft drinks since 07/2024, although he did consume some during his recent vacation. He now drinks non-carbonated tea at home. He reports that as long as his condition does not worsen, he is content. He also mentions the need to clear his throat due to regurgitation. He has been advised that he can continue with sit-ups and treadmill exercises, which do not cause him any discomfort. SOCIAL HISTORY He does not drink soft drinks anymore but did consume some during his recent vacation. He drinks non-carbonated tea at home. ADD/ADHD: Mr. Coronado has a previously documented attention deficit disorder. He is stable with current regimen. Risks of medications have been addressed. He does not get assistance from a mental health professional. Mr. Coronado reports good performance at work or school when taking medication and poor performance when not taking medications. He is not taking the medication for recreational or weight loss purposes. He is not selling, trading or giving their medication to anyone else. He is not having insomnia, palpitations, anxiety or significant weight loss. Controlled Substance Common Conditions Interval Assessment: Chronic Pain: Reason for visit: ChronicPain Follow-Up - Chirag CHOWDHURY is here for regular follow-up for chronic pain. He reports that his pain is stable and unchanged since last evaluation. Chirag CHOWDHURY has not followed up with another provider since last evaluation for this issue. The location(s) of the pain include: low back. He describes the quality of pain as: intense aching.When the pain is most severe, he rates the pain as 8 / 10. When the pain is the least severe, he rates the pain as 3 / 10. Functional limitations include: no lmitations. He has been compliant with elements of the controlled substance contract and with recommendations outlined during last assessment. Doing well, No SE's with medication. No evidence of abuse/diversion. Pt informed and aware of medication's potential for abuse/dependence. Functional goal/goals of treatment: continued management of chronic back pain. Review of Systems Constitutional: Negative. Negative for activity change, fatigue, fever and unexpected weight change. HENT: Negative. Negative for trouble swallowing. Eyes: Negative. Negative for photophobia, pain, discharge, itching and visual disturbance. Respiratory: Negative. Negative for cough, chest tightness, shortness of breath and wheezing. Cardiovascular: Negative. Negative for chest pain, palpitations and leg swelling. Gastrointestinal: Negative. Negative for abdominal distention, abdominal pain, blood in stool, constipation and diarrhea. Musculoskeletal: Negative. Negative for arthralgias, back pain, gait problem, joint swelling, myalgias, neck pain and neck stiffness. Skin: Negative. Negative for color change, pallor, rash and wound. Neurological: Negative. Negative for dizziness and headaches. Hematological: Negative for adenopathy. Psychiatric/Behavioral: Negative. Negative for confusion, sleep disturbance and suicidal ideas. Thepatient is not nervous/anxious. Objective Blood pressure 132/84, pulse 61, temperature 98.2 ??F (36.8 ??C), temperature source Temporal, height 6' (1.829 m), weight 203 lb (92.1 kg), SpO2 98%. Body mass index is 27.53 kg/m??. Physical Exam Skin: Harmless spot on the back, no signs of malignancy Physical Exam Vitals reviewed. Constitutional: General: He is not in acute distress. Appearance: Normal appearance. He is well-developed. He is not diaphoretic. HENT: Head: Normocephalic and atraumatic. Right Ear: External ear normal. Left Ear: External ear normal. Mouth/Throat: Pharynx: No oropharyngeal exudate. Eyes: General: No scleral icterus. Right eye: No discharge. Left eye: No discharge. Conjunctiva/sclera: Conjunctivae normal. Pupils: Pupils are equal, round, and reactive to light. Neck: Thyroid: No thyromegaly. Vascular: No JVD. Cardiovascular: Rate and Rhythm: Normal rate and regular rhythm. Heart sounds: Normal heart sounds. No murmur heard. No friction rub. No gallop. Pulmonary: Effort: Pulmonary effort is normal. No respiratory distress. Breath sounds: Normal breath sounds. No wheezing or rales. Chest: Chest wall: No tenderness. Abdominal: General: Bowel sounds are normal. There is no distension. Palpations: Abdomen is soft. There is no mass. Tenderness: There is no abdominal tenderness. There is no guarding or rebound. Musculoskeletal: General: No tenderness. Normal range of motion. Cervical back: Normal range of motion and neck supple. Lymphadenopathy: Cervical: No cervical adenopathy. Skin: General: Skin is warm and dry. Coloration: Skin is not pale. Findings: No erythema or rash. Neurological: Mental Status: He is alert and oriented to person, place, and time. Cranial Nerves: No cranial nerve deficit. Motor: No abnormal muscle tone. Coordination: Coordination normal. Deep Tendon Reflexes: Reflexes are normal and symmetric. Reflexes normal. Psychiatric: Behavior: Behavior normal. Thought Content: Thought content normal. Judgment: Judgment normal. Results The provider educated the patient (or legal community health program representative) on the use of the ambient listening artificial intelligence tool, [employer]. They were informed that this AI tool processes the conversation to generate a clinical note with the expected benefit of improved accuracy while achieving an improved encounter experience for the patient and provider.?The provider explained that the medical information captured by the AI tool including, but not limited to, diagnoses and treatment plan would be protected in accordance with applicable privacy laws and that all diagnoses and treatment decisions would be made by the provider. The provider explained that the note generated will be reviewed bythe provider for accuracy to minimize potential errors.? The patient was given an opportunity to ask questions and opt out of proceeding with the use of the AI tool. After being informed of such information, the patient (or legal community health program representative), and each individual in attendance with the patient, verbally consented to the use of the AI tool. documented in this encounter Plan of Treatment Upcoming Encounters Date Type Department Care Team (Late st Contact Info) Description 05/31/2025 8:00 AM EDT Office Visit [facility] [place] [phone] Jose Ayers MD [facility] [place] [phone] Scheduled Referrals Name Type Priority Associated Diagnoses Order Schedule SCREENING COLONOSCOPY Outpatient Referral Routine Special screening for malignant neoplasm of colon Ordered: 02/28/2025 documented as of this encounter Goals Goal Patient Goal Type Associated Problems Recent Progress Patient-Stated? Author Maintain a healthy diet, exercise regularly and maintain an ideal body weight General No Jose Ayers MD documented as of this encounter Visit Diagnoses Diagnosis Chronic midline low back pain without sciatica- Primary Special screening for malignant neoplasm of colon Special screening for malignant neoplasms, colon Adult ADHD Attention deficit disorder with hyperactivity documented in this encounter Discontinued Medications Medication Sig Discontinue Reason Start Date End Da te pregabalin (LYRICA) 100 mg Oral Capsule Take 2 Capsules by mouth 2 times daily for 90 days. Cancelled by 01/30/2025 02/28/2025 dextroamphetamine-amphe tamine (ADDERALL XR) 20 mg Oral Capsule, Sust. Release 24 hrIndications:Adult ADHD Take 1 Capsule by mouth daily for 30 days. Reorder 01/30/2025 02/28/2025 documented as of this encounter Care Teams Director Of Healthcare Systems Relationship Specialty Start Date End Date Jose Ayers MD [facility] [place] [phone] PCP - General Internal Medicine 12/01/24 documented as of this encounter
--- OUTSIDE RECORDS SUMMARY | 2025-03-23 11:34 | XMS_ITS | Encounter Summary ---
Author Organization [place] [address] Care Team Providers Care Shot Grinder Operator Name Role Phone Jose Ayers MD Primary Care Provider [phone] Reason for Visit * Reason Onset Date Comments Other 03/20/2025 Encounter Details Date Type Department Care Team (Late st Contact Info) Description 03/20/2025 Telephone [facility] [address] [place] [address] Edvin Scruggs LPN Other Social History Tobacco Use Types Packs/Day Years Used Date Smoking Tobacco: Never Smokeless Tobacco: Never Alcohol Use Standard Drinks/Week Comments Yes 2 [...] on file documented as of this encounter Functional Status * Is the person deaf or does he/she have serious difficulty hearing? Answer Date of Assessment Author No 02/28/2025 8:05 AM Kemi Ritchie MA * Is the person blind or does he/she have serious difficulty seeing even when wearing glasses? Answer Date of Assessment Author No 02/28/2025 8:05 AM MARIZOLT Kemi Desai MA * Does this person have serious difficulty walking or climbing stairs? Answer Date of Assessment Author No 02/28/2025 8:05 AM Kemi Ritchie MA * Does this person have difficulty dressing or bathing? Answer Date of Assessment Author No 02/28/2025 8:05 AM EDT Kemi Desai MA * Because of a physical, mental or emotional condition, does this person have difficulty doing errands alone such as visiting a doctor's office or shopping? Answer Date of Assessment Author No 02/28/2025 8:05 AM EDT Kemi Desai MA documented as of this encounter Mental Status * Because of a physical, mental or emotional condition, does this person have serious difficulty concentrating, remembering or making decisions? Answer Entry Date Author No 02/28/2025 8:05 AM EDT Kemi Desai MA documented in this encounter Miscellaneous Notes * Telephone Encounter - Edvin Scruggs LPN - 03/21/2025 4:30 PM EDT Received records last colon in 2022. Needs 5 yr fu d/t poor prep. Left message for pt telling him he is not due. Will have records scanned into [employer]. * Telephone Encounter - Edvin Scruggs LPN - 03/21/2025 4:04 PM EDT Spoke jessica/Rosey in med records & she is going to fax pts colonoscopy reports from 2022 & 2023. Stated she didn't see any others. * Telephone Encounter - Edvin Scruggs LPN - 03/20/2025 4:27 PM EDT Tried to contact med rec at [facility], med records closed for today. Will try to call again tomorrow [phone]. * Telephone Encounter - Edvin Scruggs LPN - 03/20/2025 4:07 PM EDT Called pt to schedule colonoscopy. He states he goes to [facility] & has them done & shouldn't be due for one. Unable to find reports in care everywhere. Will call [facility] to get reports. documented in this encounter Plan of Treatment Upcoming Encounters Date Type Department Care Team (Late st Contact Info) Description 05/31/2025 8:00 AM EDT Office Visit [facility] [address] [place] [phone] Jose Ayers MD [address] [facility] [place] [phone] documented as of this encounter Goals Goal Patient Goal Type Associated Problems Recent Progress Patient-Stated? Author Maintain a healthy diet, exercise regularly and maintain an ideal body weight General No Jose Ayers MD documented as of this encounter Visit Diagnoses Not on filedocumented in this encounter Care Teams Shot Grinder Operator Relationship Specialty Start Date End Date Jose Ayers MD [address] [facility] [place] [phone] PCP - General Internal Medicine 12/01/24 documented as of this encounter
--- OUTSIDE RECORDS SUMMARY | 2025-03-23 11:34 | XMS_ITS | Clinical Summary ---
Author Organization [facility] Address [address] [facility] [place] [address] Phone Care Team Providers Care Public Area Attendant Name Role Phone Jose Ayers MD Primary Care Provider [phone] Allergies No known active allergies Medications diclofenac (VOLTAREN) 75 mg Oral Tablet, Delayed Release (E.C.) Take 75 mg by mouth 2 times daily. Active rosuvastatin (CRESTOR) 20 mg Oral Tablet Take 20 mg by mouth nightly. Active traZODone (DESYREL) 50 mg Oral Tablet Take 50 mg by mouth nightly. Active esomeprazole (NEXIUM) 20 mg Oral Capsule, Delayed Release(E.C.) Take 20 mg by mouth every morning. Active metaxalone (SKELAXIN) 800 mg Oral Tablet Take 800 mg by mouth 3 times daily as needed. Active acetaminophen 325 mg Oral Tab Take by mouth every 4 hours as needed for Pain. Active montelukast (SINGULAIR) 10 mg Oral Tablet Take by mouth every evening. Active tamsulosin (FLOMAX) 0.4 mg Oral Capsule Take 0.4 mg by mouth daily. Active desvenlafaxine succinate (PRISTIQ) 50 mg Oral Tablet Sustained Release 24 hr Take 50 mg by mouth daily. Active budesonide-form oteroL (SYMBICORT) 160-4.5 mcg/actuation Inhl HFA Aerosol Inhaler INHALE 2 PUFFS BY MOUTH TWICE DAILY. RINSE MOUTH AFTER USE 03/17/2024 Active XHANCE 93 mcg/actuation Nasl Aerosol Breath Activated USE 1 SPRAY IN EACH NOSTRIL TWICE DAILY DIRECTED 03/21/2024 Active ipratropium (ATROVENT) 42 mcg (0.06 %) Nasl [place], Non-Aerosol SPRAY 2 SPRAY INTO BOTH NOSTRILS TWICE A DAY NEEDED DIRECTED 09/15/2024 Active levocetirizine (XYZAL) 5 mg Oral Tablet Take 5 mg by mouth daily. 09/02/2024 Active azelastine (ASTELIN) 137 mcg (0.1 %) Nasl [place], Non-Aerosol USE 2 SPRAYS INTO BOTH NOSTRILS TWICE A DAY 10/01/2024 Active famotidine (PEPCID) 20 mg Oral Tablet Take by mouth 2 times daily. Active polyethylene glycol (GLYCOLAX, MIRALAX) 17 gram Oral Powder in Packet Take by mouth daily. Active pregabalin (LYRICA) 150 mg Oral CapsuleIndicati ons:Chronic midline low back pain without sciatica Take 1 Capsule by mouth 2 times daily. 60 Capsule 2 02/28/2025 Active dextroamphetami ne-amphetamine (ADDERALL XR) 20 mg Oral Capsule, Sust. Release 24 hrIndications:A dult ADHD Take 1 Capsule by mouth daily for 30 days. 30 Capsule 02/28/2025 03/30/20 25 Active Active Problems Problem Noted Date Diagnosed Date Chronic low back pain 02/28/2025 Assessment & Plan (02/28/2025 8:26 AM EDT): Orders: pregabalin (LYRICA) 150 mg Oral Capsule; Take 1 Capsule by mouth 2 times daily. c 12/01/2024 Assessment & Plan (12/01/2024 12:09 PM EST): Cervical spondylarthritis 12/01/2024 Assessment & Plan (12/01/2024 12:09 PM EST): ADHD (attention deficit hyperactivity disorder) 12/01/2024 Insomnia 12/01/2024 Acute pain of left shoulder 04/11/2024 Biceps rupture, proximal, left, initial encounte r 03/22/2024 Encounters Date Type Department Care Team Description 03/20/2025 Telephone [facility] [address] [place] [address] Sheba Edvin Pinky, CONSUMER LOAN MANAGER Other 02/28/2025 8:00 AM EDT Office Visit [facility] [place] [address] [place] [phone] Jose Ayers MD Chronic midline low back pain without sciatica (Primary Dx); Special screening for malignant neoplasm of colon; Adult ADHD 01/30/2025 Refill [facility] [place] [address] [place] [phone] Jose Ayers MD Medication Refill 01/02/2025 Telephone [facility] [place] [address] [place] [phone] Jose Ayers MD Medication Refill from Last 3 Months Immunizations Immunization Administration Dates Next Due Influenza Patient Reported 07/05/2016 Tdap 04/14/2018 Surgical History Surgery Date Site/Laterality Comments GASTRIC FUNDOPLICATION ~2000 COLONOSCOPY 10/05/2014 - 10/04/2015 UPPER GASTROINTESTINAL ENDOSCOPY 10/05/2014 - 10/04/2015 SHOULDER ARTHROSCOPY 05/28/2016 Right RIGHT SHOULDER ARTHROSCOPIC ROTATOR CUFF REPAIR SUBACROMIAL DECOMPRESSION BICEPS TENODESIS ; Surgeon: Ok Asencio MD; Location: [facility]; Service: Orthopedics Medical devices from this surgery are in the Medical Devices section. ROTATOR CUFF REPAIR 05/28/2016 Right EYE SURGERY - SHOULDER ARTHROSCOPY 03/28/2024 Shoulder/Left left ARTHROSCOPIC ROTATOR CUFF REPAIR, SUBACROMIAL DECOMPRESSION, BICEP TENODESIS,; Surgeon: Ricky Asencio MD; Location: [facility]; Service: Orthopedics Medical devices from this surgery are in the Medical Devices section. Medical History Medical History Date Comments Cough 05/24/2016 went to [facility] due to cough, cough med order, no fever, at [facility] told patient that it would be ok for him to have surgery Asthma as a child Bronchitis at times in the winter Hyperlipidemia Acid reflux taking nexium Arthritis ? neck Depression Urinary retention Family History Medical History Relation Name Comments Asthma Brother Coronary Art Dis Brother Heart Disease Brother Cancer Father prostate CA Coronary Art Dis Father Diabetes Father Heart Disease Father Coronary Art Dis Mother Diabetes Mother Heart Disease Mother Diabetes Sister Anesth Problems Neg Hx Relation Name Status Comments Brother Alive Father Alive Mother Sister Alive Son Alive Social History Tobacco Use Types Packs/Day Years [...] on file Sexual Orientation Not on file Obstetrics History Last Filed Vital Signs Vital Sign Reading Time Taken Comments Blood Pressure 132/84 02/28/2025 8:06 AM EDT Pulse 61 02/28/2025 8:06 AM EDT Temperature 36.8 C (98.2 F) 02/28/2025 8:06 AM EDT Respiratory Rate 18 12/01/2024 10:17 AM EST Oxygen Saturation 98% 02/28/2025 8:06 AM EDT Inhaled Oxygen Concentration - - Weight 92.1 kg (203 lb) 02/28/2025 8:06 AM EDT Height 182.9 cm (6') 02/28/2025 8:06 AM EDT Body Mass Index 27.53 02/28/2025 8:06 AM EDT Plan of Treatment Upcoming Encounters Date Type Department Care Team (Late st Contact Info) Description 05/31/2025 8:00 AM EDT Office Visit [facility] [address] [place] [phone] Jose Ayers MD [address] [place] [phone] Health Maintenance Due Date Last Done Comments Hepatitis C Screening 1981 Cologuard 01/18/2008 Colon Cancer Screening 01/18/2008 Colonoscopy 01/18/2008 FIT 01/18/2008 Sigmoidoscopy 01/18/2008 Virtual Colonography 01/18/2008 Annual Wellness Exam 12/01/2025 12/01/2024 DTaP/TDaP/Td (2 - Td or Tdap) 04/14/2028 04/14/2018, 12/07/1996 Zoster Completed 01/15/2022, 10/12/2021 Influenza Vaccine Completed 08/11/2024, , 06/10/2020, Additional history exists COVID-19 Vaccine Completed 10/26/2024, , 12/27/2020, Additional history exists Pneumococcal Vaccine 50+ Completed 10/26/2024 Hepatitis B Vaccine Aged Out No longe r eligible based on patient's age to complete this topic Meningococcal B Vaccine Aged Out No l onger eligible based on patient's age to complete this topic Goals Goal Patient Goal Type Associated Problems Recent Progress Patient-Stated? Author Maintain a healthy diet, exercise regularly and maintain an ideal body weight General No Jose Ayers MD Medical Devices Implanted Type Area It Support Consultant Device Identifier Shelf Expiration Date Model / Serial / Lot [place] Lock Swivel Biocomposite 5.5 Mm X 19.1mm - [id number] Implanted:Qty: 1 on 05/28/2016 by Ricky Asencio MD at [facility] Right: Shoulder ARTHREX 02/01/2018 [id number]-[id number] C / / [id number] [place] 4.5 Healixadv Br Anc Pcord - [id number] Implanted:Qty: 1 on 05/28/2016 by Ricky Asencio MD at [facility] Right: Shoulder J&J:ETHICON:LAKEISHA EK PRDT 02/04/2019 [id number] / / [id number] [place] Super With Orthocord - [id number] Implanted:Qty: 1 on 05/28/2016 by Ricky Asencio MD at [facility] Right: Shoulder J&J:DEPUY:[employer] 02/01/2019 [id number] / / [id number] [place] Sut Healix Advance 4.5mm Bcrl Rapide Wht/Blk/Grn - [id number] Implanted:Qty: 1 on 03/28/2024 by Ricky Asencio MD at [place] [facility] Left: Shoulder J&J:ETHICON:[facility] EK PRDT [id number] 12/02/2024 [id number] / / [id number] [place] Sut Healix Advance 4.5mm Bcrl Rapide Wht/Blk - [id number] Implanted:Qty: 1 on 03/28/2024 by Ricky Asencio MD at [place] Left: Shoulder J&J:ETHICON:[facility] EK PRDT [id number] 09/03/2026 [id number] / / [id number] [place] Sut Healix Advance 4.5mm Bcrl Rapide Wht/Blk - [id number] Implanted:Qty: 1 on 03/28/2024 by Ricky Asencio MD at [place] Left: Shoulder J&J:ETHICON:[facility] EK PRDT [id number] 09/03/2026 [id number] / / [id number] [place] Sut Swivelk C 5.5x19.1mm Ft Kntls Twist-In Clsd Eylt - [id number] Implanted:Qty: 1 on 03/28/2024 by Ricky Asencio MD at [place] [facility] Left: Shoulder ARTHREX [id number] 12/03/2027 AR-2323BC C / / [id number] [place] Sut Swivelk C 5.5x19.1mm Ft Kntls Twist-In Clsd Eylt - [id number] Implanted:Qty: 1 on 03/28/2024 by Ricky Asencio MD at [facility] [facility] Left: Shoulder ARTHREX [id number] 12/03/2027 AR-2323BC C / / [id number] Insurance [address] CLAIMS MANAGEMENT * Guarantor: CHIRAG SCHULTZ Account Type Relation to Patient Date of Phone Billing Address [place] [employer] [address] [place] Care Teams Public Area Attendant Relationship Specialty Start Date End Date Jose Ayers [place] [address] [place] [address] PCP - General Internal Medicine 12/01/24
--- OUTSIDE RECORDS SUMMARY | 2025-03-23 11:35 | XMS_ITS | Encounter Summary ---
Author Organization [place] [address] Care Team Providers Care Paper Cone Maker Name Role Phone Jose Ayers MD Primary Care Provider [phone] Reason for Visit * Reason Onset Date Comments Medication Refill 01/30/2025 Encounter Details Date Type Department Care Team (Late st Contact Info) Description 01/30/2025 Refill [facility] [place] [phone] Jose Ayers MD [employer] [facility] [address] Medication Refill Social History Tobacco Use Types Packs/Day Years Used Date Smoking Tobacco: Never Smokeless Tobacco: Never Alcohol Use Standard Drinks/Week Comments Yes 2 (1 standard drink = 0.6 oz pur e alcohol) social PHQ-2 Answer Date Recorded PHQ-2 Total Score 0 12/01/2024 Sex and Gender Information Value Date Recorded Sex Assigned at Not on file Legal Sex Male 7:36 PM EDT Gender Identity Not on file Sexual Orientation Not on file documented as of this encounter Ordered Prescriptions Prescription Sig Dispense Quantity Refills Last Filled Start Date End Date pregabalin (LYRICA) 100 mg Oral Capsule Take 2 Capsules by mouth 2 times daily for 90 days. 120 Capsule 2 01/30/2025 dextroamphetamine- amphetamine (ADDERALL XR) 20 mg Oral Capsule, Sust. Release 24 hrIndications:Adul t ADHD Take 1 Capsule by mouth daily for 30 days. 30 Capsule 01/30/2025 5 documented in this encounter Miscellaneous Notes * Telephone Encounter - Dominga Rodriguez MA - 01/30/2025 8:20 AM EDT Images from the original note were not included. Last Office Visit reviewing controlled substances: 12/01/2024 Approved Ambien, Gabapentin, Lyrica, Butalbital = must be in last 6 months. All other controlled medications = must be in last 3 months. If visit is not up to date, please call and schedule appointment. Next appointment scheduled?: Yes SUSHILA Last Reviewed by Prescriber: PDMP not electronically reviewed on this encounter. Date of last completed CSA if not included in flowsheet below: 12/05/2024 No data to display If had complete compliance panel: 12/05/2024 Last resulted compliance panel date: 12/06/2024 (If patient had partial drug screen or in-house drug screen, please document date of that below): * Telephone Encounter - Vania Pires - 01/30/2025 8:06 AM EDT Pt is needing a refill on his pregabalin (LYRICA) 100 mg Oral Capsule dextroamphetamine-amphetamine (ADDERALL XR) 20 mg Oral Capsule, Sust. Release 24 hr To [facility] in [place] documented in this encounter Plan of Treatment Upcoming Encounters Date Type Department Care Team (Late st Contact Info) Description 05/31/2025 8:00 AM EDT Office Visit [facility] [address] [place] [phone] Jose Ayers MD [address] [place] [phone] documented as of this encounter Goals Goal Patient Goal Type Associated Problems Recent Progress Patient-Stated? Author Maintain a healthy diet, exercise regularly and maintain an ideal body weight General No Jose Ayers MD documented as of this encounter Visit Diagnoses Diagnosis Adult ADHD Attention deficit disorder with hyperactivity documented in this encounter Discontinued Medications Medication Sig Discontinue Reason Start Date End Da te pregabalin (LYRICA) 100 mg Oral Capsule Take 200 mg by mouth 2 times daily. Reorder 01/30/2025 dextroamphetamine-amphet amine (ADDERALL XR) 20 mg Oral Capsule, Sust. Release 24 hrIndications:Adult ADHD Take 1 Capsule by mouth daily for 30 days. Reorder 01/02/2025 01/30/2025 documented as of this encounter Care Teams Paper Cone Maker Relationship Specialty Start Date End Date Jose Ayers MD [address] [place] [phone] PCP - General Internal Medicine 12/01/24 documented as of this encounter
== END 2025-03-23 23:59 | disposition home or self-care (01) ==
LOC: DIETICIAN 11:30
PROVIDERS: PCP Family Medicine; Visit Provider Nurse Practitioner Family
DX: K21.9 Gastro-esophageal reflux disease without esophagitis (principal); R09.89 Other specified symptoms and signs involving the circulatory and respiratory systems
CPT/HCPCS: 97802